=== PATIENT | female | born 1985 ===

== ENCOUNTER 2017-09-12 21:04 | Emergency (ER) | payer OTHER ==
[~2017-09-12] VITALS: Ht 165.1 cm; Wt 117.9 kg
== END 2017-09-12 22:42 | disposition home or self-care (01) ==
LOC: ER 21:04
DX: S60.221A Contusion of right hand, initial encounter (principal); W18.39XA Other fall on same level, initial encounter; Y93.89 Activity, other specified; Y92.89 Other specified places as the place of occurrence of the external cause; Y99.8 Other external cause status